=== PATIENT | male | born 1975 | race Caucasian/White ===

== ENCOUNTER → 2021-01-06 14:09 | Outpatient (BNVA) | payer SELFPAY | PROVIDERS: Visit Provider Physician Assistant | DX: Z02.79 Encounter for issue of other medical certificate (principal) ==

== ENCOUNTER → 2021-12-21 13:59 | Outpatient (BNVA) | payer SELFPAY | PROVIDERS: Visit Provider Physician Assistant Medical | DX: S66.892A Other injury of other specified muscles, fascia and tendons at wrist and hand level, left hand, initial encounter (principal); W18.30XA Fall on same level, unspecified, initial encounter ==